=== PATIENT | male | born 1960 | race Caucasian/White ===

== ENCOUNTER 2023-04-24 13:12 | Inpatient (IN) | payer OTHER ==
[2023-04-24] VITALS (17 sets, daily range): BP systolic 108–187; BP diastolic 66–119
[~2023-04-24] VITALS: Ht 190.5 cm; Wt 118.9 kg
[2023-04-24 13:43] LABS: BASOPHILS ABSOLUTE AUTO 0.02 K/mm3 (0.00-0.23); BASOPHILS PERCENT AUTO 0 % (0-2); EOSINOPHILS ABSOLUTE AUTO 0.02 K/mm3 (0.00-0.68); EOSINOPHILS PERCENT AUTO 0 % (0-6); Hemoglobin 15.8 g/dL (13.5-17.5); IMMATURE GRAN ABSOLUTE AUTO 0.03 K/mm3 (0.00-0.10); IMMATURE GRAN PERCENT AUTO 0 % (0-1); LYMPHOCYTES ABSOLUTE AUTO 1.32 K/mm3 (0.84-5.20); LYMPHOCYTES PERCENT AUTO 13 % (21-46); MONOCYTES ABSOLUTE AUTO 0.46 K/mm3 (0.16-1.47); MONOCYTES PERCENT AUTO 5 % (4-13); Mean Corpuscular HGB Conc 34.3 g/dL (31.5-36.5); Mean Corpuscular Volume 93 fL (80-100); Mean Platelet Volume 9.3 fL (9.1-12.4); NEUTROPHILS ABSOLUTE AUTO 8.25 K/mm3 (1.96-9.15); NEUTROPHILS PERCENT AUTO 82 % (41-73); Platelet Count 210 K/mm3 (150-400); RDW Coefficient Variation 13.2 % (11.7-14.2); Red Blood Cell Count 4.93 M/mm3 (4.30-5.90)
[2023-04-24 15:05] LABS: Albumin, Blood 3.6 g/dL (3.4-5.0); Albumin/Globulin Ratio 0.8 (0.8-1.8); Bilirubin, Total 0.7 mg/dL (0.1-1.0); Bun/Creatinine Ratio 19.2 (12.0-20.0); Calcium, Blood 9.9 mg/dL (8.5-10.1); Creatinine, Blood 0.73 mg/dL (0.60-1.20); Globulin, Blood 4.4 g/dL (2.2-4.0); Potassium, Blood 4.2 mmol/L (3.5-5.5)
--- NOTE | 2023-04-24 16:32 | NUR ---
PT TO UNIT VIA GURN, PT ABLE TO AMBULATE TO RESTROOM WITH STEADY GAIT AND ABLE TO URINATE. Surgical site prepped with 2% Chlorhexidine cloth wipe. History, Chart, Medications and Allergies reviewed before start of procedure. Lungs clear T/O to Auscultation. DENTURES PLACED IN CUP IN PACU. OTHER PATIENT BELONGINGS PLACED IN BAG UNDER GURN.
--- NOTE | 2023-04-24 19:45 | NUR ---
ARRIVAL TO UNIT. LATE ENTRY. PT ARRIVED FROM PACU AT 192. PT A/O X4 UPON ARRIVAL. PAIN 12/12. NG TUBE CONNECTED TO LOW INTERMITTENT SUCTION AND PRODUCING "PINK" OUTPUT. PT REPORTED TAKING PEPTO PREVIOUSLY IN THE DAY. PT ON O2 AND SATS ABOVE 93% ON 3 LITERS VIA N/C. VITAL SIGNS OBTAINED. PT UNSURE OF THE NAMES OF HIS BEDTIME MEDICATIONS.
[2023-04-25 03:11] VITALS: BP 111/58
[2023-04-25 04:22] LABS: BASOPHILS ABSOLUTE AUTO 0.01 K/mm3 (0.00-0.23); BASOPHILS PERCENT AUTO 0 % (0-2); EOSINOPHILS PERCENT AUTO 0 % (0-6); Hematocrit 41.6 % (37.0-53.0); Hemoglobin 14.1 g/dL (13.5-17.5); IMMATURE GRAN ABSOLUTE AUTO 0.05 K/mm3 (0.00-0.10); IMMATURE GRAN PERCENT AUTO 1 % (0-1); LYMPHOCYTES ABSOLUTE AUTO 0.86 K/mm3 (0.84-5.20); LYMPHOCYTES PERCENT AUTO 8 % (21-46); MONOCYTES ABSOLUTE AUTO 0.29 K/mm3 (0.16-1.47); MONOCYTES PERCENT AUTO 3 % (4-13); Mean Corpuscular HGB 32.2 pg (26.0-34.0); Mean Corpuscular HGB Conc 33.9 g/dL (31.5-36.5); Mean Corpuscular Volume 95 fL (80-100); Mean Platelet Volume 9.5 fL (9.1-12.4); NEUTROPHILS ABSOLUTE AUTO 9.79 K/mm3 (1.96-9.15); NEUTROPHILS PERCENT AUTO 89 % (41-73); Platelet Count 222 K/mm3 (150-400); RDW Coefficient Variation 13.3 % (11.7-14.2); Red Blood Cell Count 4.38 M/mm3 (4.30-5.90)
[2023-04-25 04:43] LABS: Albumin, Blood 2.9 g/dL (3.4-5.0); Albumin/Globulin Ratio 0.7 (0.8-1.8); Bilirubin, Total 0.6 mg/dL (0.1-1.0); Calcium, Blood 9.1 mg/dL (8.5-10.1); Creatinine, Blood 0.8 mg/dL (0.60-1.20); Globulin, Blood 3.9 g/dL (2.2-4.0); Potassium, Blood 4.2 mmol/L (3.5-5.5); Total Protein, Blood 6.8 g/dL (6.4-8.2)
[2023-04-25] MEDS ORDERED: PRAZ5 PO (05:46)
[2023-04-25] MEDS ORDERED: ESCI10 PO (05:47)
[2023-04-25] MEDS ORDERED: Cyclobenzaprine5 MG PO (05:48)
--- NOTE | 2023-04-25 07:24 | NUR ---
SHIFT SUMMARY NOC. PT A/O X4. PT MEDICATED FOR PAIN APPROX EVERY 2 HOURS WITH RELIEF. PT UP TO BEDSIDE COMMODE X2. PT NPO AND VOIDING URINE. PT HAS NG TUBE PRODUCING OUTPUT AND CONNECTED TO LOW INTERMITTENT SUCTION. PT LAP SITES ON ANTERIOR ABDOMEN ARE C/D/I. PT PASSING GAS PER RECTUM THIS EVENING. NO NAUSEA THIS SHIFT. PT DID NOT SLEEP MUCH DURING THE NIGHT BUT WAS ABLE TO REST WITH CALL LIGHT IN REACH.
[2023-04-25 07:52] VITALS: BP 120/83
--- NOTE | 2023-04-25 13:19 | NUR ---
NG TUBE DC'D- ER DR FLOYD NG TUBE DC'D. PT TOLLERATED DC WELL. MINOR GAG REFLEX. DENIES PAIN (BEYOND WHAT HE ALREADY HAD) OR NAUSEA UPON REMOVAL.
[2023-04-25 14:55] VITALS: BP 131/78
--- NOTE | 2023-04-25 17:04 | NUR ---
SPOKE TO DR FLOYD- PT RECIEVEING IV FENTANYL Q2 HOURS, NG TUBE DC'D PER MD ORDER. DR FLOYD ADDED PO MED. PT MEDICATED WITH LOWEST DOSE AND ON FOLLOW UP REQUESTED THE SECOND HALF. PT IS AWARE NEXT DOSE NOT AVAILABLE UNTIL 10PM. FENTANYL FOR BREAKTHROUGH. PER MD IVF DC'D PT STARTED ON A CLEAR LIQUID DIET, HE IS EXPRESSING HUNGER NOW. PT ENCOURAGED TO AMBULATE. AMBULATED 300FT IN THE HALLWAY AND CARRIED HIS WALKER FOR THE SECOND HALF OF THE WALK. PT FAMILY JUST ARRIVED TO VISIT. NO S&S OF DISTRESS NOTED PAIN RATED 2/10 AFTER THE WALK.
--- NOTE | 2023-04-25 17:47 | NUR ---
SHIFT SUMMARY- PO PAIN MEDICATION SEEMS TO BE IMPROVING THE PT PAIN MANAGEMENT. HE STATED PAIN 2/10 ON LAST CARE ROUNDING. FAMILY WAS AT THE BEDSIDE GETTING READY TO LEAVE FOR THE NIGHT. PT IN BED, CALL LIGHT IN REACH NO S&S OF DISTRESS NOTED, CLEAR LIQUID DIET ORDERED.
--- NOTE | 2023-04-25 19:27 | NUR ---
DR FLOYD CAME TO SEE THE PT- PT TOLLERATING PO CLEAR FLUIDS THIS EVENING. IVF DC'D PER MD ORDER.
[2023-04-25 19:30] VITALS: BP 133/71
[2023-04-26 03:44] VITALS: BP 108/77
--- NOTE | 2023-04-26 04:15 | NUR ---
SHIFT SUMMARY POD2 LAP REJI W/ RELEASE OF SBO PT PAIN MANAGED PER EMAR. ABLE TO REST T/O NIGHT. TOLERATING CLEAR LIQUID DIET, DENIES ANY N/V. REPORTS PASSING GAS. NO BM, VOIDING. LAP SITES X3 COVERED WITH GAUZE AND TEGADERM, ALL DRESSING C/D/I. PT UP EARLY THIS AM. GOT CLEANED UP AND AWAITING DR FOR PLANS. NO OHTER CONCERNS AT THIS TIME. [facility].
[2023-04-26 08:01] VITALS: BP 121/80
[2023-04-26] MEDS ORDERED: Norco 5-325 Ta1 EACH PO (08:48)
--- NOTE | 2023-04-26 13:30 | NUR ---
DISCHARGE PATIENT IV TAKEN OUT INTACT, WITH NO COMPLICATIONS. ALL DISCHARGE INSTRUCTIONS READ TO PATIENT AND FAMILY MEMBERS. PATIENT SIGNS UNDERSTANDING AND ALL BELONGINGS ARE BAGGED AND TAKEN OUT WITH PATIENT TO PRIVATE VEHICLE.
== END 2023-04-26 12:51 | disposition home or self-care (01) | DRG 335 ==
LOC: ER 13:12 → SURS 16:24
PROVIDERS: Emergency Medicine; ADMIT Surgery
PROC: 0DN84ZZ Release Small Intestine, Percutaneous Endoscopic Approach (ICD-10-PCS; principal; 2023-04-24 16:00)
DX: K56.50 Intestinal adhesions [bands], unspecified as to partial versus complete obstruction (principal); K55.011 Focal (segmental) acute (reversible) ischemia of small intestine; F31.9 Bipolar disorder, unspecified; K74.60 Unspecified cirrhosis of liver; F41.9 Anxiety disorder, unspecified; F17.210 Nicotine dependence, cigarettes, uncomplicated; Z79.899 Other long term (current) drug therapy; Z98.890 Other specified postprocedural states
CPT/HCPCS: 36415; 71045; 74177; 80053; 83605; 83690; 84484; 85025; 93005; 93010; 94762; 96361; 96365-59; 96375; 96376; 99285-25; A9270; J0295; J0690; J1100; J1170; J1650; J2250; J2405; J2704; J3010; J7030; J7120; Q9967

== ENCOUNTER → 2023-05-04 | Outpatient (CLI) | payer OTHER ==
[~2023-05-04] MED LIST: Cyclobenzaprine5 MG PO; ESCI10 PO; Norco 5-325 Ta1 EACH PO; PRAZ5 PO
[2023-05-05 12:04] LABS: Stool Occult Bld Immuno 1 Negative (NEGATIVE)
== END ==
LOC: LAB 14:33 → LAB SHORT 14:33
PROVIDERS: Physician Assistant
DX: Z12.11 Encounter for screening for malignant neoplasm of colon (principal)
CPT/HCPCS: G0328